=== PATIENT | male | born 1945 | race Asian ===

== ENCOUNTER 2017-10-13 17:58 | Inpatient (IN) | payer MEDICARE, OTHER ==
[2017-10-13 18:56] LABS: ADD MAN DIFF? NO
[2017-10-13 19:01] LABS: WHITE BLOOD COUNT 8.5 10^3/ul (4.8-10.8)
[2017-10-13 19:01] LABS: ABNORMAL IP MESSAGE 1; BASOPHILS % 0.4 % (0.0-2.0); HEMOGLOBIN 7.4 g/dl (14.0-18.0); LYMPHOCYTES # 0.6 10^3/ul (0.8-2.9); LYMPHOCYTES % 6.6 % (15.0-51.0); MEAN CORPUSCULAR HEMOGLOBIN 29.5 pg (29.0-33.0); MEAN CORPUSCULAR HGB CONC 33.6 g/dl (32.0-37.0); MEAN CORPUSCULAR VOLUME 87.6 fl (82.0-101.0); MEAN PLATELET VOLUME 13.6 fl (7.4-10.4); MONOCYTE # 1.3 10^3/ul (0.3-0.9); MONOCYTES % 14.8 % (0.0-11.0); NEUTROPHIL # 6.3 10^3/ul (1.6-7.5); NEUTROPHILS % 73.8 % (39.0-77.0); PLATELET COUNT 83 10^3/UL (140-415); POSITIVE DIFF @See below; RED BLOOD COUNT 2.51 10^6/ul (4.70-6.10); RED CELL DISTRIBUTION WIDTH 15.3 % (11.5-14.5)
[2017-10-13] MEDS: CEFTRIAXONE 1 GM/50 ML (PMX) 50 ML IVPB (19:05)
[2017-10-13] MEDS: SOD CHLORIDE 0.9% 500 ML IV (19:15)
[2017-10-13] MEDS: ACETAMINOPHEN 500 MG TAB PO (19:16)
[2017-10-13] MEDS: PANTOPRAZOLE IV 80 MG in SOD CHLORIDE 0.9% 100 ML IVPB (19:17)
[2017-10-13] MEDS: OCTREOTIDE 50 MCG in SOD CHLORIDE 0.9% 25 ML IVPB ×2 (19:17→19:40)
[2017-10-13 19:22] LABS: INR 1.54; PROTIME 18.8 Sec (11.9-14.9); PT RATIO 1.5
[2017-10-13 19:23] LABS: PARTIAL THROMBOPLASTIN TIME 38.1 Sec (25.0-35.0)
[2017-10-13 19:30] LABS: LACTIC ACID 2.8 mmol/L (0.5-2.0)
[2017-10-13 19:39] LABS: TROPONIN-I < 0.012 ng/ml (0.000-0.120)
[2017-10-13 19:40] LABS: ALANINE AMINOTRANSFERASE 40 IU/L (13-69); ALBUMIN 2.3 g/dl (3.3-4.9); ALBUMIN/GLOBULIN RATIO 0.54; ALKALINE PHOSPHATASE 219 IU/L (42-121); ANION GAP 16 (8-16); ASPARTATE AMINO TRANSFERASE 31 IU/L (15-46); BILIRUBIN,INDIRECT 0.6 mg/dl (0-1.1); BILIRUBIN,TOTAL 0.6 mg/dl (0.2-1.3); BLOOD UREA NITROGEN 42 mg/dl (7-20); CALCIUM 8.7 mg/dl (8.4-10.2); CARBON DIOXIDE 21 mmol/L (21-31); CHLORIDE 104 mmol/L (97-110); CREATININE 0.98 mg/dl (0.61-1.24); GLUCOSE 161 mg/dl (70-220); LIPASE 212 U/L (23-300); POTASSIUM 3.9 mmol/L (3.5-5.1); SODIUM 137 mmol/L (135-144); TOTAL PROTEIN 6.5 g/dl (6.1-8.1)
[2017-10-13] MEDS: PANTOPRAZOLE IV 80 MG in SOD CHLORIDE 0.9% 100 ML IV ×2 (20:32→21:30)
[2017-10-13] MEDS: OCTREOTIDE 500 MCG in SOD CHLORIDE 0.9% 49 ML IV (20:34)
[2017-10-13] MEDS: SOD CHLORIDE 0.9% 250 ML IV (20:55)
[2017-10-13] MEDS ORDERED: ONDANSETRON 4 MG INJ IV (21:30)
[2017-10-13] MEDS ORDERED: morphine 2 MG INJ IV (21:30)
[2017-10-13 22:09] LABS: HAAIG REFLEX REFLEX FILED
[2017-10-13 22:13] LABS: RETICULOCYTE RBC 2.27
[2017-10-13 22:13] LABS: RETICULOCYTE COUNT # 0.015 X10^6 (0.020-0.110); RETICULOCYTE COUNT % 0.7 % (0.5-1.5)
[2017-10-13 22:39] LABS: LACTATE DEHYDROGENASE 307 IU/L (313-618)
[2017-10-13 22:45] LABS: LACTIC ACID 2.3 mmol/L (0.5-2.0)
[2017-10-13 23:18] LABS: HEPATITIS B SURFACE ANTIGEN NEGATIVE (NEGATIVE)
[2017-10-13 23:36] LABS: HEPATITIS B CORE ANTIBODY NEGATIVE (NEGATIVE); HEPATITIS C VIRAL ANTIBODY NEGATIVE (NEGATIVE)
[2017-10-14] MEDS ORDERED: PENDING SANTYL ORDER FOR WOUND CARE XX
[2017-10-14] MEDS: OCTREOTIDE 1 MG in DEXTROSE 5% 95 ML IV ×2 (01:04→17:59)
[2017-10-14] MEDS: SOD CHLORIDE 0.9% 1,000 ML IV ×2 (01:04→21:16)
[2017-10-14] MEDS: PIPER-TAZO 3.375 GM IV (PMX) 100 ML IVPB ×5 (01:05→23:41)
[2017-10-14 01:59] LABS: LACTIC ACID 1.6 mmol/L (0.5-2.0)
[2017-10-14] MEDS ORDERED: VANCOMYCIN IV PER PHARMACY XX (02:00)
[2017-10-14 02:20] LABS: IMMEDIATE SPIN CROSSMATCH 1 6
[2017-10-14] MEDS: PANTOPRAZOLE IV 80 MG in SOD CHLORIDE 0.9% 100 ML IV ×3 (02:57→21:39)
[2017-10-14] MEDS: VANCOMYCIN 1.25 GM in SOD CHLORIDE 0.9% 250 ML IVPB (03:31)
[2017-10-14 06:07] LABS: WHITE BLOOD COUNT 2.2 10^3/ul (4.8-10.8)
[2017-10-14 06:07] LABS: ABNORMAL IP MESSAGE 1; HEMATOCRIT 15.8 % (42.0-52.0); MEAN CORPUSCULAR HEMOGLOBIN 30.9 pg (29.0-33.0); MEAN CORPUSCULAR HGB CONC 34.8 g/dl (32.0-37.0); MEAN CORPUSCULAR VOLUME 88.8 fl (82.0-101.0); MEAN PLATELET VOLUME 12.4 fl (7.4-10.4); PLATELET COUNT 35 10^3/UL (140-415); RED BLOOD COUNT 1.78 10^6/ul (4.70-6.10); RED CELL DISTRIBUTION WIDTH 14.5 % (11.5-14.5)
[2017-10-14 06:31] LABS: HEMOGLOBIN 5.5 g/dl (14.0-18.0)
[2017-10-14 06:40] LABS: PROTIME 18.4 Sec (11.9-14.9); PT RATIO 1.4
[2017-10-14 06:44] LABS: ANION GAP 12 (8-16); BLOOD UREA NITROGEN 46 mg/dl (7-20); CALCIUM 8.1 mg/dl (8.4-10.2); CARBON DIOXIDE 22 mmol/L (21-31); CHLORIDE 108 mmol/L (97-110); CREATININE 1.22 mg/dl (0.61-1.24); GLUCOSE 164 mg/dl (70-220); MAGNESIUM 1.7 mg/dl (1.7-2.5); PHOSPHORUS 5.5 mg/dl (2.5-4.9); POTASSIUM 3.4 mmol/L (3.5-5.1); SODIUM 139 mmol/L (135-144)
[2017-10-14 07:38] LABS: ADD MAN DIFF? NO
[2017-10-14 07:41] LABS: ABNORMAL IP MESSAGE 1; BASOPHILS % 0.4 % (0.0-2.0); HEMATOCRIT 18.6 % (42.0-52.0); LYMPHOCYTES # 0.4 10^3/ul (0.8-2.9); MEAN CORPUSCULAR HEMOGLOBIN 30.3 pg (29.0-33.0); MEAN CORPUSCULAR HGB CONC 33.9 g/dl (32.0-37.0); MEAN CORPUSCULAR VOLUME 89.4 fl (82.0-101.0); MEAN PLATELET VOLUME 13.6 fl (7.4-10.4); MONOCYTE # 0.5 10^3/ul (0.3-0.9); MONOCYTES % 18.9 % (0.0-11.0); NEUTROPHIL # 1.4 10^3/ul (1.6-7.5); NEUTROPHILS % 58.9 % (39.0-77.0); PLATELET COUNT 47 10^3/UL (140-415); POSITIVE DIFF @See below; RED BLOOD COUNT 2.08 10^6/ul (4.70-6.10); RED CELL DISTRIBUTION WIDTH 14.5 % (11.5-14.5)
[2017-10-14 07:41] LABS: WHITE BLOOD COUNT 2.4 10^3/ul (4.8-10.8)
[2017-10-14 07:43] LABS: HEMOGLOBIN 6.3 g/dl (14.0-18.0)
[2017-10-14 09:39] LABS: ADD UMIC YES; UR ASCORBIC ACID NEGATIVE (NEGATIVE); UR BACTERIA FEW /HPF (NONE SEEN); UR BILIRUBIN (Dip) NEGATIVE (NEGATIVE); UR BLOOD (Dip) 2+ mg/dL (NEGATIVE); UR BUDDING YEAST FEW /HPF (NONE SEEN); UR CLARITY CLOUDY (CLEAR); UR COLOR AMBER (YELLOW); UR GLUCOSE (Dip) NEGATIVE (NEGATIVE); UR KETONES (Dip) NEGATIVE (NEGATIVE); UR LEUKOCYTE ESTERASE (Dip) 2+ Leu/ul (NEGATIVE); UR NITRITE (Dip) NEGATIVE (NEGATIVE); UR NONSQUAMOUS EPITHELIAL CELL 5 /HPF (NONE SEEN); UR RBC 13 /HPF (0-5); UR SPECIFIC GRAVITY (Dip) 1.016 (1.003-1.030); UR TOTAL PROTEIN (Dip) 1+ mg/dl (NEGATIVE); UR UROBILINOGEN (Dip) NEGATIVE (NEGATIVE); UR WBC 159 /HPF (0-5)
[2017-10-14] MEDS: POTASSIUM CHLORIDE 50 ML IVPB ×2 (09:57→11:17)
[2017-10-14 10:43] LABS: BAND NEUTROPHILS #M 0.1 10^3/ul (0.0-0.6); BAND NEUTROPHILS % (M) 9 % (0-4); LYMPHOCYTES #M 0.6 10^3/ul (0.8-2.9); LYMPHOCYTES % (M) 29 % (15-51); METAMYELOCYTES %M 2 % (0-0); MONOCYTE #M 0.3 10^3/ul (0.3-0.9); MONOCYTES % (M) 14 % (0-11); MYELOCYTES % (M) 2 % (0-0); SEGMENTED NEUTROPHILS (M) % 44 % (39-77)
[2017-10-14 10:46] LABS: ANISOCYTOSIS 1+ (0-0); HYPOCHROMASIA OCCASIONAL (0-0)
[2017-10-14 10:47] LABS: ADD MAN DIFF? YES
[2017-10-14 10:49] LABS: PATH REVIEW Y; PLATELET ESTIMATE DECREASED
[2017-10-14 14:42] LABS: TYPE AND SCREEN 1
[2017-10-14] MEDS: BISACODYL (EC) 5 MG TAB PO (17:31)
[2017-10-14] MEDS: POLYETHYLENE GLYCOL 3350 119 GM POWDER PO (17:32)
[2017-10-14 17:56] LABS: ADD MAN DIFF? NO
[2017-10-14 17:59] LABS: ABNORMAL IP MESSAGE 1; BASOPHILS % 0.5 % (0.0-2.0); HEMATOCRIT 21.5 % (42.0-52.0); HEMOGLOBIN 7.5 g/dl (14.0-18.0); LYMPHOCYTES # 0.3 10^3/ul (0.8-2.9); LYMPHOCYTES % 14.4 % (15.0-51.0); MEAN CORPUSCULAR HEMOGLOBIN 30.7 pg (29.0-33.0); MEAN CORPUSCULAR HGB CONC 34.9 g/dl (32.0-37.0); MEAN CORPUSCULAR VOLUME 88.1 fl (82.0-101.0); MEAN PLATELET VOLUME 12.8 fl (7.4-10.4); MONOCYTE # 0.3 10^3/ul (0.3-0.9); MONOCYTES % 17.5 % (0.0-11.0); NEUTROPHIL # 1.2 10^3/ul (1.6-7.5); NEUTROPHILS % 60.9 % (39.0-77.0); PLATELET COUNT 66 10^3/UL (140-415); POSITIVE DIFF @See below; RED BLOOD COUNT 2.44 10^6/ul (4.70-6.10); RED CELL DISTRIBUTION WIDTH 14.2 % (11.5-14.5)
[2017-10-14 17:59] LABS: WHITE BLOOD COUNT 1.9 10^3/ul (4.8-10.8)
[2017-10-14 18:27] LABS: INR 1.49; PROTIME 18.3 Sec (11.9-14.9); PT RATIO 1.4
[2017-10-14] MEDS: MAGNESIUM CITRATE 300 ML BTL PO (19:31)
[2017-10-14] MEDS: COLLAGENASE 5 GM (UD JAR) TOP (21:17)
[2017-10-14 21:44] LABS: WHITE BLOOD COUNT 2.3 10^3/ul (4.8-10.8)
[2017-10-14 21:44] LABS: ABNORMAL IP MESSAGE 1; HEMATOCRIT 22.9 % (42.0-52.0); HEMOGLOBIN 7.9 g/dl (14.0-18.0); MEAN CORPUSCULAR HEMOGLOBIN 30.3 pg (29.0-33.0); MEAN CORPUSCULAR HGB CONC 34.5 g/dl (32.0-37.0); MEAN CORPUSCULAR VOLUME 87.7 fl (82.0-101.0); PLATELET COUNT 71 10^3/UL (140-415); POSITIVE DIFF @See below; RED BLOOD COUNT 2.61 10^6/ul (4.70-6.10); RED CELL DISTRIBUTION WIDTH 14.6 % (11.5-14.5)
[2017-10-14 21:51] LABS: ADD MAN DIFF? YES
[2017-10-14 22:04] LABS: LACTIC ACID 1.1 mmol/L (0.5-2.0)
[2017-10-14 22:52] LABS: BAND NEUTROPHILS #M 0.1 10^3/ul (0.0-0.6); BAND NEUTROPHILS % (M) 6 % (0-4); LYMPHOCYTES # 0.3 10^3/ul (0.8-2.9); LYMPHOCYTES #M 0.3 10^3/ul (0.8-2.9); LYMPHOCYTES % (M) 14 % (15-51); MONOCYTE # 0.4 10^3/ul (0.3-0.9); MONOCYTE #M 0.4 10^3/ul (0.3-0.9); MONOCYTES % (M) 18 % (0-11); SEG NEUT #M 1.4 10^3/ul (1.7-7.5); SEGMENTED NEUTROPHILS (M) % 62 % (39-77)
[2017-10-14 23:01] LABS: PLATELET ESTIMATE DECREASED
[2017-10-15] MEDS: PANTOPRAZOLE IV 80 MG in SOD CHLORIDE 0.9% 100 ML IV ×3 (01:50→14:18)
[2017-10-15] MEDS: VANCOMYCIN 1 GM 250 ML IVPB (03:15)
[2017-10-15 05:16] LABS: WHITE BLOOD COUNT 1.7 10^3/ul (4.8-10.8)
[2017-10-15 05:16] LABS: ABNORMAL IP MESSAGE 1; HEMATOCRIT 22.4 % (42.0-52.0); HEMOGLOBIN 7.5 g/dl (14.0-18.0); MEAN CORPUSCULAR HEMOGLOBIN 30.1 pg (29.0-33.0); MEAN CORPUSCULAR HGB CONC 33.5 g/dl (32.0-37.0); MEAN PLATELET VOLUME 12.1 fl (7.4-10.4); PLATELET COUNT 68 10^3/UL (140-415); RED BLOOD COUNT 2.49 10^6/ul (4.70-6.10); RED CELL DISTRIBUTION WIDTH 14.8 % (11.5-14.5)
[2017-10-15 05:28] LABS: INR 1.42; PROTIME 17.6 Sec (11.9-14.9); PT RATIO 1.4
[2017-10-15 05:48] LABS: ADD MAN DIFF? YES
[2017-10-15] MEDS: PIPER-TAZO 3.375 GM IV (PMX) 100 ML IVPB ×3 (05:58→18:41)
[2017-10-15] MEDS: SOD CHLORIDE 0.9% 1,000 ML IV (05:59)
[2017-10-15] MEDS: POLYETHYLENE GLYCOL 3350 119 GM POWDER PO (06:02)
[2017-10-15 07:25] LABS: ALANINE AMINOTRANSFERASE 39 IU/L (13-69); ALBUMIN 2.4 g/dl (3.3-4.9); ALBUMIN/GLOBULIN RATIO 0.63; ALKALINE PHOSPHATASE 150 IU/L (42-121); ANION GAP 12 (8-16); ASPARTATE AMINO TRANSFERASE 23 IU/L (15-46); BLOOD UREA NITROGEN 40 mg/dl (7-20); CALCIUM 8.4 mg/dl (8.4-10.2); CARBON DIOXIDE 24 mmol/L (21-31); CHLORIDE 115 mmol/L (97-110); CREATININE 1.22 mg/dl (0.61-1.24); GLUCOSE 137 mg/dl (70-220); POTASSIUM 3.6 mmol/L (3.5-5.1); SODIUM 147 mmol/L (135-144); TOTAL PROTEIN 6.2 g/dl (6.1-8.1)
[2017-10-15] MEDS: BISACODYL (EC) 5 MG TAB PO (08:02)
[2017-10-15] MEDS: POTASSIUM CHLORIDE 50 ML IVPB ×2 (08:11→10:54)
[2017-10-15 11:18] LABS: ABNORMAL IP MESSAGE 1; HEMATOCRIT 24.3 % (42.0-52.0); HEMOGLOBIN 8.2 g/dl (14.0-18.0); MEAN CORPUSCULAR HEMOGLOBIN 30.7 pg (29.0-33.0); MEAN CORPUSCULAR HGB CONC 33.7 g/dl (32.0-37.0); PLATELET COUNT 71 10^3/UL (140-415); POSITIVE DIFF @See below; RED BLOOD COUNT 2.67 10^6/ul (4.70-6.10); RED CELL DISTRIBUTION WIDTH 14.7 % (11.5-14.5)
[2017-10-15 11:18] LABS: WHITE BLOOD COUNT 1.5 10^3/ul (4.8-10.8)
[2017-10-15 11:20] LABS: ADD MAN DIFF? YES
[2017-10-15 13:33] LABS: ANISOCYTOSIS 1+ (0-0); BAND NEUTROPHILS #M 0.3 10^3/ul (0.0-0.6); BAND NEUTROPHILS % (M) 21 % (0-4); LYMPHOCYTES #M 0.2 10^3/ul (0.8-2.9); LYMPHOCYTES % (M) 15 % (15-51); METAMYELOCYTES %M 3 % (0-0); MONOCYTE #M 0.1 10^3/ul (0.3-0.9); MONOCYTES % (M) 12 % (0-11); MYELOCYTES % (M) 3 % (0-0); OVALOCYTES 1+ (0-0); PLATELET ESTIMATE DECREASED; POIKILOCYTOSIS 1+ (0-0); REACTIVE LYMPHOCYTES% (M) 2 % (0-0); SEG NEUT #M 0.6 10^3/ul (1.6-7.5); SEGMENTED NEUTROPHILS (M) % 43 % (39-77); TEAR DROP CELLS 1+ (0-0)
[2017-10-15 13:44] LABS: BAND NEUTROPHILS #M 0.3 10^3/ul (0.0-0.6); BAND NEUTROPHILS % (M) 20 % (0-4); LYMPHOCYTES # 0.3 10^3/ul (0.8-2.9); LYMPHOCYTES #M 0.2 10^3/ul (0.8-2.9); LYMPHOCYTES % (M) 16 % (15-51); METAMYELOCYTES %M 2 % (0-0); MONOCYTE # 0.2 10^3/ul (0.3-0.9); MONOCYTE #M 0.2 10^3/ul (0.3-0.9); MONOCYTES % (M) 13 % (0-11); MYELOCYTES % (M) 3 % (0-0); OVALOCYTES FEW (0-0); REACTIVE LYMPHOCYTES% (M) 2 % (0-0); SEG NEUT #M 0.8 10^3/ul (1.7-7.5); SEGMENTED NEUTROPHILS (M) % 44 % (39-77); TEAR DROP CELLS FEW (0-0)
[2017-10-15] MEDS: OCTREOTIDE 1 MG in DEXTROSE 5% 95 ML IV (14:17)
[2017-10-15 14:52] LABS: ADD MAN DIFF? NO
[2017-10-15 14:57] LABS: ABNORMAL IP MESSAGE 1; HEMATOCRIT 22.3 % (42.0-52.0); HEMOGLOBIN 7.4 g/dl (14.0-18.0); MEAN CORPUSCULAR HEMOGLOBIN 30.1 pg (29.0-33.0); MEAN CORPUSCULAR HGB CONC 33.2 g/dl (32.0-37.0); MEAN CORPUSCULAR VOLUME 90.7 fl (82.0-101.0); MEAN PLATELET VOLUME 12.5 fl (7.4-10.4); PLATELET COUNT 71 10^3/UL (140-415); POSITIVE DIFF @See below; RED BLOOD COUNT 2.46 10^6/ul (4.70-6.10); RED CELL DISTRIBUTION WIDTH 15.2 % (11.5-14.5)
[2017-10-15 14:57] LABS: WHITE BLOOD COUNT 1.5 10^3/ul (4.8-10.8)
[2017-10-15 15:41] LABS: HAPTOGLOBIN 74 mg/dL (43-212)
[2017-10-15 15:54] LABS: IMMEDIATE SPIN CROSSMATCH 1
[2017-10-15 16:41] LABS: ANISOCYTOSIS 1+ (0-0); BAND NEUTROPHILS #M 0.1 10^3/ul (0.0-0.6); BAND NEUTROPHILS % (M) 9 % (0-4); GIANT THROMBO% (M) 1 % (0-0); LYMPHOCYTES #M 0.2 10^3/ul (0.8-2.9); LYMPHOCYTES % (M) 18 % (15-51); METAMYELOCYTES %M 1 % (0-0); MONOCYTE #M 0.1 10^3/ul (0.3-0.9); MONOCYTES % (M) 7 % (0-11); PLATELET MORPHOLOGY COMMENT @See below; POLYCHROMASIA 1+ (0-0); SEGMENTED NEUTROPHILS (M) % 66 % (39-77); SMUDGE%M 1 % (0-0)
[2017-10-15] MEDS ORDERED: ONDANSETRON 4 MG INJ IV (18:00)
[2017-10-15] MEDS ORDERED: hydrALAzine 20 MG INJ IV (18:00)
[2017-10-15] MEDS ORDERED: FENTAnyl 50 MCG/ML VIAL IV ×3 (18:00)
[2017-10-15] MEDS ORDERED: OXYCODONE/ACETAMINOPHEN (5/325) TAB PO ×2 (18:00)
[2017-10-15] MEDS ORDERED: METOCLOPRAMIDE 10 MG INJ IV (18:00)
[2017-10-15] MEDS ORDERED: LABETALOL HCL 20MG INJ IV (18:00)
[2017-10-15] MEDS ORDERED: MIDAZOLAM 1 MG/ML 2 ML INJ IV (18:00)
[2017-10-15] MEDS ORDERED: DIPHENHYDRAMINE 50 MG INJ IV (18:00)
[2017-10-15] MEDS ORDERED: MEPERIDINE 25 MG INJ IV (18:00)
[2017-10-15] MEDS ORDERED: EPHEDrine SULFATE 50 MG/5 ML SYG IV (18:00)
[2017-10-15] MEDS: PROPOFOL 20 ML (18:23)
[2017-10-15 21:05] LABS: ABNORMAL IP MESSAGE 1; ADD MAN DIFF? YES; HEMATOCRIT 24.4 % (42.0-52.0); HEMOGLOBIN 8.2 g/dl (14.0-18.0); MEAN CORPUSCULAR HEMOGLOBIN 30.3 pg (29.0-33.0); MEAN CORPUSCULAR HGB CONC 33.6 g/dl (32.0-37.0); MEAN PLATELET VOLUME 12.7 fl (7.4-10.4); PLATELET COUNT 75 10^3/UL (140-415); POSITIVE DIFF @See below; RED BLOOD COUNT 2.71 10^6/ul (4.70-6.10); RED CELL DISTRIBUTION WIDTH 15.6 % (11.5-14.5)
[2017-10-15 21:05] LABS: WHITE BLOOD COUNT 1.4 10^3/ul (4.8-10.8)
[2017-10-15] MEDS: COLLAGENASE 5 GM (UD JAR) TOP (21:35)
[2017-10-15 22:14] LABS: BAND NEUTROPHILS % (M) 6 % (0-4); BASOPHILS % (M) 4 % (0-2); LYMPHOCYTES #M 0.5 10^3/ul (0.8-2.9); LYMPHOCYTES % (M) 40 % (15-51); METAMYELOCYTES %M 2 % (0-0); MONOCYTES % (M) 2 % (0-11); MYELOCYTES % (M) 2 % (0-0); PLATELET MORPHOLOGY COMMENT @See below; POIKILOCYTOSIS 1+ (0-0); SEG NEUT #M 0.6 10^3/ul (1.6-7.5); SEGMENTED NEUTROPHILS (M) % 45 % (39-77); SMUDGE%M 3 % (0-0)
[2017-10-16 00:59] LABS: WHITE BLOOD COUNT 1.6 10^3/ul (4.8-10.8)
[2017-10-16 00:59] LABS: ABNORMAL IP MESSAGE 1; HEMATOCRIT 26.3 % (42.0-52.0); HEMOGLOBIN 8.8 g/dl (14.0-18.0); MEAN CORPUSCULAR HEMOGLOBIN 29.9 pg (29.0-33.0); MEAN CORPUSCULAR HGB CONC 33.5 g/dl (32.0-37.0); MEAN CORPUSCULAR VOLUME 89.5 fl (82.0-101.0); MEAN PLATELET VOLUME 11.8 fl (7.4-10.4); PLATELET COUNT 81 10^3/UL (140-415); POSITIVE DIFF @See below; RED BLOOD COUNT 2.94 10^6/ul (4.70-6.10); RED CELL DISTRIBUTION WIDTH 15.8 % (11.5-14.5)
[2017-10-16 01:03] LABS: ADD MAN DIFF? YES
[2017-10-16] MEDS: PIPER-TAZO 3.375 GM IV (PMX) 100 ML IVPB ×5 (01:47→23:55)
[2017-10-16 02:00] LABS: BAND NEUTROPHILS % (M) 6 % (0-4); LYMPHOCYTES #M 0.2 10^3/ul (0.8-2.9); LYMPHOCYTES % (M) 13 % (15-51); MONOCYTE #M 0.2 10^3/ul (0.3-0.9); MONOCYTES % (M) 13 % (0-11); PLATELET ESTIMATE DECREASED; REACTIVE LYMPHOCYTES% (M) 3 % (0-0); SEGMENTED NEUTROPHILS (M) % 65 % (39-77)
[2017-10-16] MEDS: VANCOMYCIN 1 GM 250 ML IVPB (04:47)
[2017-10-16 06:23] LABS: ADD MAN DIFF? NO
[2017-10-16 06:28] LABS: ABNORMAL IP MESSAGE 1; HEMATOCRIT 23.9 % (42.0-52.0); LYMPHOCYTES # 0.2 10^3/ul (0.8-2.9); LYMPHOCYTES % 14.9 % (15.0-51.0); MEAN CORPUSCULAR HEMOGLOBIN 29.6 pg (29.0-33.0); MEAN CORPUSCULAR HGB CONC 33.5 g/dl (32.0-37.0); MEAN CORPUSCULAR VOLUME 88.5 fl (82.0-101.0); MEAN PLATELET VOLUME 12.6 fl (7.4-10.4); MONOCYTE # 0.3 10^3/ul (0.3-0.9); MONOCYTES % 15.5 % (0.0-11.0); NEUTROPHILS % 64.6 % (39.0-77.0); PLATELET COUNT 85 10^3/UL (140-415); POSITIVE DIFF @See below; RED CELL DISTRIBUTION WIDTH 15.9 % (11.5-14.5)
[2017-10-16 06:28] LABS: WHITE BLOOD COUNT 1.6 10^3/ul (4.8-10.8)
[2017-10-16 07:41] LABS: ANION GAP 10 (8-16); BLOOD UREA NITROGEN 35 mg/dl (7-20); CALCIUM 8.3 mg/dl (8.4-10.2); CARBON DIOXIDE 23 mmol/L (21-31); CHLORIDE 118 mmol/L (97-110); CREATININE 1.12 mg/dl (0.61-1.24); GLUCOSE 145 mg/dl (70-220); POTASSIUM 3.7 mmol/L (3.5-5.1); SODIUM 147 mmol/L (135-144)
[2017-10-16] MEDS: BARIUM SULF 2% 450 ML BTL (BERRY SMOOTHIE) PO (08:30)
[2017-10-16] MEDS: IOHEXOL 14.3 MG(I)/ML (ADULT) BTL PO (10:23)
[2017-10-16] MEDS: PANTOPRAZOLE (EC) 40 MG TAB PO ×2 (12:17→17:45)
[2017-10-16] MEDS: IOHEXOL 300MG/ML 150 ML BTL (13:09)
[2017-10-16] MEDS: SOD CHLORIDE 0.9% 100 ML (13:10)
[2017-10-16 14:01] LABS: WHITE BLOOD COUNT 1.4 10^3/ul (4.8-10.8)
[2017-10-16 14:01] LABS: ABNORMAL IP MESSAGE 1; HEMATOCRIT 23.6 % (42.0-52.0); HEMOGLOBIN 7.8 g/dl (14.0-18.0); MEAN CORPUSCULAR HEMOGLOBIN 29.7 pg (29.0-33.0); MEAN CORPUSCULAR HGB CONC 33.1 g/dl (32.0-37.0); MEAN CORPUSCULAR VOLUME 89.7 fl (82.0-101.0); MEAN PLATELET VOLUME 12.1 fl (7.4-10.4); PLATELET COUNT 91 10^3/UL (140-415); POSITIVE DIFF @See below; RED BLOOD COUNT 2.63 10^6/ul (4.70-6.10); RED CELL DISTRIBUTION WIDTH 15.9 % (11.5-14.5)
[2017-10-16 14:10] LABS: ADD MAN DIFF? YES
[2017-10-16 15:46] LABS: ANISOCYTOSIS 1+ (0-0); BAND NEUTROPHILS #M 0.2 10^3/ul (0.0-0.6); BAND NEUTROPHILS % (M) 20 % (0-4); LYMPHOCYTES #M 0.2 10^3/ul (0.8-2.9); LYMPHOCYTES % (M) 21 % (15-51); METAMYELOCYTES %M 1 % (0-0); MONOCYTE #M 0.1 10^3/ul (0.3-0.9); MONOCYTES % (M) 12 % (0-11); PLATELET ESTIMATE DECREASED; POIKILOCYTOSIS 1+ (0-0); POLYCHROMASIA 1+ (0-0); SEG NEUT #M 0.6 10^3/ul (1.6-7.5); SEGMENTED NEUTROPHILS (M) % 46 % (39-77)
[2017-10-16 18:58] LABS: ADD MAN DIFF? NO
[2017-10-16 19:00] LABS: WHITE BLOOD COUNT 1.8 10^3/ul (4.8-10.8)
[2017-10-16 19:00] LABS: ABNORMAL IP MESSAGE 1; HEMATOCRIT 24.5 % (42.0-52.0); HEMOGLOBIN 8.1 g/dl (14.0-18.0); LYMPHOCYTES # 0.3 10^3/ul (0.8-2.9); LYMPHOCYTES % 14.3 % (15.0-51.0); MEAN CORPUSCULAR HEMOGLOBIN 29.3 pg (29.0-33.0); MEAN CORPUSCULAR HGB CONC 33.1 g/dl (32.0-37.0); MEAN CORPUSCULAR VOLUME 88.8 fl (82.0-101.0); MEAN PLATELET VOLUME 12.2 fl (7.4-10.4); MONOCYTE # 0.3 10^3/ul (0.3-0.9); MONOCYTES % 18.3 % (0.0-11.0); NEUTROPHIL # 1.1 10^3/ul (1.6-7.5); PLATELET COUNT 97 10^3/UL (140-415); POSITIVE DIFF @See below; RED BLOOD COUNT 2.76 10^6/ul (4.70-6.10); RED CELL DISTRIBUTION WIDTH 15.9 % (11.5-14.5)
[2017-10-16] MEDS: COLLAGENASE 5 GM (UD JAR) TOP (20:34)
[2017-10-16] MEDS: SOD CHLORIDE 0.9% 1,000 ML IV (20:41)
[2017-10-17 00:49] LABS: WHITE BLOOD COUNT 1.4 10^3/ul (4.8-10.8)
[2017-10-17 00:49] LABS: ABNORMAL IP MESSAGE 1; HEMATOCRIT 22.7 % (42.0-52.0); HEMOGLOBIN 7.6 g/dl (14.0-18.0); MEAN CORPUSCULAR HEMOGLOBIN 29.9 pg (29.0-33.0); MEAN CORPUSCULAR HGB CONC 33.5 g/dl (32.0-37.0); MEAN CORPUSCULAR VOLUME 89.4 fl (82.0-101.0); MEAN PLATELET VOLUME 12.4 fl (7.4-10.4); PLATELET COUNT 85 10^3/UL (140-415); POSITIVE DIFF @See below; RED BLOOD COUNT 2.54 10^6/ul (4.70-6.10); RED CELL DISTRIBUTION WIDTH 15.9 % (11.5-14.5)
[2017-10-17 01:05] LABS: ADD MAN DIFF? YES
[2017-10-17 03:14] LABS: BAND NEUTROPHILS #M 0.1 10^3/ul (0.0-0.6); BAND NEUTROPHILS % (M) 10 % (0-4); LYMPHOCYTES #M 0.2 10^3/ul (0.8-2.9); LYMPHOCYTES % (M) 16 % (15-51); MONOCYTE #M 0.2 10^3/ul (0.3-0.9); MONOCYTES % (M) 19 % (0-11); MYELOCYTES % (M) 2 % (0-0); PLATELET ESTIMATE DECREASED; POIKILOCYTOSIS 1+ (0-0); POLYCHROMASIA 2+ (0-0); PROMYELOCYTES #M 0.1 10^3/ul (0-0); PROMYELOCYTES % (M) 8 % (0-0); SEG NEUT #M 0.6 10^3/ul (1.6-7.5); SEGMENTED NEUTROPHILS (M) % 45 % (39-77); SMUDGE%M 5 % (0-0)
[2017-10-17] MEDS: PANTOPRAZOLE (EC) 40 MG TAB PO ×2 (05:06→18:05)
[2017-10-17] MEDS: PIPER-TAZO 3.375 GM IV (PMX) 100 ML IVPB ×4 (05:11→23:35)
[2017-10-17] MEDS ORDERED: PANTOPRAZOLE (EC) 40 MG TAB PO (06:00)
[2017-10-17 06:53] LABS: WHITE BLOOD COUNT 1.6 10^3/ul (4.8-10.8)
[2017-10-17 06:53] LABS: ABNORMAL IP MESSAGE 1; HEMATOCRIT 25.5 % (42.0-52.0); HEMOGLOBIN 8.4 g/dl (14.0-18.0); MEAN CORPUSCULAR HEMOGLOBIN 30.1 pg (29.0-33.0); MEAN CORPUSCULAR HGB CONC 32.9 g/dl (32.0-37.0); MEAN CORPUSCULAR VOLUME 91.4 fl (82.0-101.0); MEAN PLATELET VOLUME 12.5 fl (7.4-10.4); PLATELET COUNT 101 10^3/UL (140-415); POSITIVE DIFF @See below; RED BLOOD COUNT 2.79 10^6/ul (4.70-6.10); RED CELL DISTRIBUTION WIDTH 15.7 % (11.5-14.5)
[2017-10-17 07:03] LABS: ADD MAN DIFF? YES
[2017-10-17 07:13] LABS: INR 1.48; PROTIME 18.2 Sec (11.9-14.9); PT RATIO 1.4
[2017-10-17 07:38] LABS: ALBUMIN 2.4 g/dl (3.3-4.9); ANION GAP 13 (8-16); BLOOD UREA NITROGEN 27 mg/dl (7-20); CALCIUM 8.3 mg/dl (8.4-10.2); CARBON DIOXIDE 22 mmol/L (21-31); CHLORIDE 115 mmol/L (97-110); CREATININE 1.18 mg/dl (0.61-1.24); GLUCOSE 131 mg/dl (70-220); PHOSPHORUS 4.9 mg/dl (2.5-4.9); POTASSIUM 3.4 mmol/L (3.5-5.1); SODIUM 147 mmol/L (135-144)
[2017-10-17 07:43] LABS: C-REACTIVE PROTEIN 5.3 mg/dl (0.0-0.9)
[2017-10-17 08:30] LABS: ERYTHROCYTE SEDIMENTATION RATE 55 mm/Hr (0-20)
[2017-10-17 09:10] LABS: BAND NEUTROPHILS #M 0.4 10^3/ul (0.0-0.6); BAND NEUTROPHILS % (M) 29 % (0-4); LYMPHOCYTES #M 0.1 10^3/ul (0.8-2.9); LYMPHOCYTES % (M) 12 % (15-51); METAMYELOCYTES %M 2 % (0-0); MONOCYTE #M 0.2 10^3/ul (0.3-0.9); MONOCYTES % (M) 15 % (0-11); MYELOCYTES % (M) 1 % (0-0); PLATELET ESTIMATE DECREASED; REACTIVE LYMPHOCYTES% (M) 1 % (0-0); SEG NEUT #M 0.6 10^3/ul (1.6-7.5); SEGMENTED NEUTROPHILS (M) % 40 % (39-77); SMUDGE%M 77 % (0-0); SPHEROCYTES 1+ (0-0)
[2017-10-17] MEDS: POTASSIUM CHLORIDE (SR) 20 MEQ TAB PO (09:19)
[2017-10-17 17:04] LABS: ABNORMAL IP MESSAGE 1; HEMATOCRIT 25.4 % (42.0-52.0); HEMOGLOBIN 8.4 g/dl (14.0-18.0); MEAN CORPUSCULAR HEMOGLOBIN 29.7 pg (29.0-33.0); MEAN CORPUSCULAR HGB CONC 33.1 g/dl (32.0-37.0); MEAN CORPUSCULAR VOLUME 89.8 fl (82.0-101.0); MEAN PLATELET VOLUME 11.8 fl (7.4-10.4); PLATELET COUNT 112 10^3/UL (140-415); POSITIVE DIFF @See below; RED BLOOD COUNT 2.83 10^6/ul (4.70-6.10); RED CELL DISTRIBUTION WIDTH 15.8 % (11.5-14.5)
[2017-10-17 17:04] LABS: WHITE BLOOD COUNT 2.5 10^3/ul (4.8-10.8)
[2017-10-17 17:06] LABS: ADD MAN DIFF? YES
[2017-10-17 17:50] LABS: ANISOCYTOSIS 1+ (0-0); BAND NEUTROPHILS #M 0.5 10^3/ul (0.0-0.6); BAND NEUTROPHILS % (M) 20 % (0-4); LYMPHOCYTES #M 0.5 10^3/ul (0.8-2.9); LYMPHOCYTES % (M) 21 % (15-51); METAMYELOCYTES %M 1 % (0-0); MONOCYTE #M 0.2 10^3/ul (0.3-0.9); MONOCYTES % (M) 10 % (0-11); PLATELET ESTIMATE NORMAL; POLYCHROMASIA 1+ (0-0); SEG NEUT #M 1.2 10^3/ul (1.6-7.5); SEGMENTED NEUTROPHILS (M) % 48 % (39-77); SMUDGE%M 5 % (0-0)
[2017-10-17] MEDS: PROPRANOLOL 10 MG TAB PO (20:39)
[2017-10-17] MEDS: COLLAGENASE 5 GM (UD JAR) TOP (20:39)
[2017-10-17] MEDS: SOD CHLORIDE 0.9% 1,000 ML IV (21:16)
[2017-10-17 22:34] LABS: ADD MAN DIFF? NO
[2017-10-17 22:36] LABS: BASOPHILS % 0.4 % (0.0-2.0); HEMOGLOBIN 8.2 g/dl (14.0-18.0); LYMPHOCYTES # 0.3 10^3/ul (0.8-2.9); LYMPHOCYTES % 12.3 % (15.0-51.0); MEAN CORPUSCULAR HEMOGLOBIN 29.8 pg (29.0-33.0); MEAN CORPUSCULAR HGB CONC 32.8 g/dl (32.0-37.0); MEAN CORPUSCULAR VOLUME 90.9 fl (82.0-101.0); MEAN PLATELET VOLUME 12.3 fl (7.4-10.4); MONOCYTE # 0.4 10^3/ul (0.3-0.9); MONOCYTES % 16.9 % (0.0-11.0); NEUTROPHIL # 1.6 10^3/ul (1.6-7.5); NEUTROPHILS % 67.9 % (39.0-77.0); PLATELET COUNT 111 10^3/UL (140-415); RED BLOOD COUNT 2.75 10^6/ul (4.70-6.10); RED CELL DISTRIBUTION WIDTH 15.8 % (11.5-14.5)
[2017-10-17 22:40] LABS: WHITE BLOOD COUNT 2.4 10^3/ul (4.8-10.8)
[2017-10-18] MEDS: PIPER-TAZO 3.375 GM IV (PMX) 100 ML IVPB ×3 (06:12→18:47)
[2017-10-18] MEDS: PANTOPRAZOLE (EC) 40 MG TAB PO ×2 (06:12→18:47)
[2017-10-18] MEDS: SOD CHLORIDE 0.9% 1,000 ML IV (06:18)
[2017-10-18 06:27] LABS: ADD MAN DIFF? NO
[2017-10-18 06:32] LABS: ABNORMAL IP MESSAGE 1; HEMATOCRIT 22.7 % (42.0-52.0); HEMOGLOBIN 7.6 g/dl (14.0-18.0); LYMPHOCYTES # 0.3 10^3/ul (0.8-2.9); LYMPHOCYTES % 13.2 % (15.0-51.0); MEAN CORPUSCULAR HEMOGLOBIN 30.2 pg (29.0-33.0); MEAN CORPUSCULAR HGB CONC 33.5 g/dl (32.0-37.0); MEAN CORPUSCULAR VOLUME 90.1 fl (82.0-101.0); MEAN PLATELET VOLUME 12.3 fl (7.4-10.4); MONOCYTE # 0.3 10^3/ul (0.3-0.9); MONOCYTES % 16.2 % (0.0-11.0); NEUTROPHIL # 1.4 10^3/ul (1.6-7.5); NEUTROPHILS % 67.2 % (39.0-77.0); PLATELET COUNT 101 10^3/UL (140-415); POSITIVE DIFF @See below; RED BLOOD COUNT 2.52 10^6/ul (4.70-6.10); RED CELL DISTRIBUTION WIDTH 15.7 % (11.5-14.5)
[2017-10-18 06:50] LABS: ALBUMIN 2.4 g/dl (3.3-4.9); ANION GAP 13 (8-16); BLOOD UREA NITROGEN 24 mg/dl (7-20); CALCIUM 8.4 mg/dl (8.4-10.2); CARBON DIOXIDE 21 mmol/L (21-31); CHLORIDE 117 mmol/L (97-110); CREATININE 1.05 mg/dl (0.61-1.24); GLUCOSE 144 mg/dl (70-220); MAGNESIUM 1.9 mg/dl (1.7-2.5); PHOSPHORUS 4.1 mg/dl (2.5-4.9); POTASSIUM 3.8 mmol/L (3.5-5.1); SODIUM 147 mmol/L (135-144)
[2017-10-18] MEDS: PROPRANOLOL 10 MG TAB PO ×2 (08:33→21:08)
[2017-10-18 12:14] LABS: ADD MAN DIFF? NO
[2017-10-18 12:27] LABS: ABNORMAL IP MESSAGE 1; HEMATOCRIT 24.9 % (42.0-52.0); HEMOGLOBIN 8.2 g/dl (14.0-18.0); LYMPHOCYTES # 0.3 10^3/ul (0.8-2.9); LYMPHOCYTES % 14.9 % (15.0-51.0); MEAN CORPUSCULAR HEMOGLOBIN 29.8 pg (29.0-33.0); MEAN CORPUSCULAR HGB CONC 32.9 g/dl (32.0-37.0); MEAN CORPUSCULAR VOLUME 90.5 fl (82.0-101.0); MEAN PLATELET VOLUME 12.2 fl (7.4-10.4); MONOCYTE # 0.3 10^3/ul (0.3-0.9); MONOCYTES % 16.9 % (0.0-11.0); NEUTROPHIL # 1.3 10^3/ul (1.6-7.5); NEUTROPHILS % 63.7 % (39.0-77.0); PLATELET COUNT 116 10^3/UL (140-415); POSITIVE DIFF @See below; RED BLOOD COUNT 2.75 10^6/ul (4.70-6.10); RED CELL DISTRIBUTION WIDTH 15.6 % (11.5-14.5)
[2017-10-18] MEDS: PHYTONADIONE 10 MG/ML INJ SC (14:06)
[2017-10-18 19:53] LABS: HEMATOCRIT 24.5 % (42.0-52.0)
[2017-10-18] MEDS: COLLAGENASE 5 GM (UD JAR) TOP (21:07)
[2017-10-18] MEDS: ALBUTEROL/IPRATROPIUM (NEB) 3 ML AMP HHN (21:30)
[2017-10-19] MEDS: PIPER-TAZO 3.375 GM IV (PMX) 100 ML IVPB ×4 (00:59→17:34)
[2017-10-19 06:22] LABS: ADD MAN DIFF? NO
[2017-10-19 06:24] LABS: WHITE BLOOD COUNT 1.8 10^3/ul (4.8-10.8)
[2017-10-19 06:24] LABS: ABNORMAL IP MESSAGE 1; HEMATOCRIT 23.5 % (42.0-52.0); HEMOGLOBIN 7.8 g/dl (14.0-18.0); LYMPHOCYTES # 0.3 10^3/ul (0.8-2.9); LYMPHOCYTES % 16.4 % (15.0-51.0); MEAN CORPUSCULAR HEMOGLOBIN 30.4 pg (29.0-33.0); MEAN CORPUSCULAR HGB CONC 33.2 g/dl (32.0-37.0); MEAN CORPUSCULAR VOLUME 91.4 fl (82.0-101.0); MONOCYTE # 0.3 10^3/ul (0.3-0.9); MONOCYTES % 16.9 % (0.0-11.0); NEUTROPHIL # 1.2 10^3/ul (1.6-7.5); NEUTROPHILS % 64.5 % (39.0-77.0); POSITIVE DIFF @See below; RED BLOOD COUNT 2.57 10^6/ul (4.70-6.10); RED CELL DISTRIBUTION WIDTH 15.8 % (11.5-14.5)
[2017-10-19] MEDS: PANTOPRAZOLE (EC) 40 MG TAB PO ×2 (06:25→17:34)
[2017-10-19 06:50] LABS: ALBUMIN 2.3 g/dl (3.3-4.9); ANION GAP 11 (8-16); BLOOD UREA NITROGEN 24 mg/dl (7-20); CALCIUM 8.5 mg/dl (8.4-10.2); CARBON DIOXIDE 22 mmol/L (21-31); CHLORIDE 119 mmol/L (97-110); GLUCOSE 154 mg/dl (70-220); MAGNESIUM 1.9 mg/dl (1.7-2.5); PHOSPHORUS 3.8 mg/dl (2.5-4.9); POTASSIUM 3.7 mmol/L (3.5-5.1); SODIUM 148 mmol/L (135-144)
[2017-10-19 08:21] LABS: MEAN PLATELET VOLUME 12.3 fl (7.4-10.4); PLATELET COUNT 82 10^3/UL (140-415)
[2017-10-19] MEDS: PROPRANOLOL 10 MG TAB PO ×2 (08:28→21:44)
[2017-10-19] MEDS: MESALAMINE (EC) 400 MG CAP PO ×3 (10:11→21:44)
[2017-10-19 12:28] LABS: HEMOGLOBIN 7.6 g/dl (14.0-18.0)
[2017-10-19] MEDS: ALBUTEROL/IPRATROPIUM (NEB) 3 ML AMP HHN (17:42)
[2017-10-19 18:37] LABS: HEMOGLOBIN 8.2 g/dl (14.0-18.0)
[2017-10-19] MEDS: SOD CHLORIDE 0.9% 1,000 ML IV (21:16)
[2017-10-19] MEDS: COLLAGENASE 5 GM (UD JAR) TOP (21:44)
[2017-10-20] MEDS: PIPER-TAZO 3.375 GM IV (PMX) 100 ML IVPB ×4 (00:07→17:28)
[2017-10-20] MEDS: PANTOPRAZOLE (EC) 40 MG TAB PO ×2 (05:16→17:28)
[2017-10-20] MEDS: PROPRANOLOL 10 MG TAB PO ×2 (08:51→23:41)
[2017-10-20] MEDS: MESALAMINE (EC) 400 MG CAP PO ×3 (08:51→23:40)
[2017-10-20] MEDS ORDERED: FUROSEMIDE 40 MG INJ IV (11:30)
[2017-10-20] MEDS ORDERED: SPIRONOLACTONE 25 MG TAB PO (11:30)
[2017-10-20] MEDS ORDERED: FUROSEMIDE 20 MG TAB PO (12:00)
[2017-10-20 13:15] LABS: HEMOGLOBIN 8.9 g/dl (14.0-18.0)
[2017-10-20 13:35] LABS: INR 1.36; PT RATIO 1.3
[2017-10-20] MEDS: ALBUTEROL/IPRATROPIUM (NEB) 3 ML AMP HHN (14:04)
[2017-10-20] MEDS: DEXTROSE 5%-0.45% NACL 1,000 ML IV (15:00)
[2017-10-20] MEDS: LIDOCAINE 1% (MDV) 10 ML INJ (16:02)
[2017-10-20 16:56] LABS: FLD MN% 93.4 %; FLD PMN% 6.6 %; FLD RBC 0 /uL; FLD WBC 15 /cmm
[2017-10-20 17:16] LABS: RETICULOCYTE RBC 2.97
[2017-10-20 17:16] LABS: RETICULOCYTE COUNT # 0.012 X10^6 (0.020-0.110); RETICULOCYTE COUNT % 0.4 % (0.5-1.5)
[2017-10-20 17:26] LABS: IRON 118 ug/dl (35-150)
[2017-10-20 17:35] LABS: FLD TYPE ASCITES
[2017-10-20 17:35] LABS: FLD CLARITY CLEAR; FLD COLOR YELLOW
[2017-10-20 17:36] LABS: % IRON SATURATION 76 % SAT (22-52); TOTAL IRON BINDING CAPACITY 155 ug/dl (241-421)
[2017-10-20 17:40] LABS: FLUID LD 130 U/L
[2017-10-20 17:41] LABS: FLUID TYPE ASCITIES FLUID
[2017-10-20 18:11] LABS: HEMOGLOBIN 7.5 g/dl (14.0-18.0)
[2017-10-20 19:31] LABS: FOLATE 15.5 ng/ml (2.8-20.0)
[2017-10-20] MEDS: COLLAGENASE 5 GM (UD JAR) TOP (23:41)
[2017-10-21] MEDS: PIPER-TAZO 3.375 GM IV (PMX) 100 ML IVPB ×3 (00:22→13:42)
[2017-10-21] MEDS: PANTOPRAZOLE (EC) 40 MG TAB PO ×2 (06:32→18:38)
[2017-10-21] MEDS ORDERED: SPIRONOLACTONE 25 MG TAB PO (09:00)
[2017-10-21] MEDS: MESALAMINE (EC) 400 MG CAP PO ×3 (09:19→21:33)
[2017-10-21] MEDS: FOLIC ACID 1 MG TAB PO (09:20)
[2017-10-21] MEDS: PROPRANOLOL 10 MG TAB PO ×2 (09:20→21:00)
[2017-10-21 10:17] LABS: ADD MAN DIFF? NO
[2017-10-21 10:23] LABS: ABNORMAL IP MESSAGE 1; BASOPHILS % 0.4 % (0.0-2.0); HEMATOCRIT 28.2 % (42.0-52.0); HEMOGLOBIN 9.4 g/dl (14.0-18.0); LYMPHOCYTES # 0.3 10^3/ul (0.8-2.9); LYMPHOCYTES % 11.7 % (15.0-51.0); MEAN CORPUSCULAR HEMOGLOBIN 29.7 pg (29.0-33.0); MEAN CORPUSCULAR HGB CONC 33.3 g/dl (32.0-37.0); MEAN CORPUSCULAR VOLUME 89.2 fl (82.0-101.0); MONOCYTE # 0.6 10^3/ul (0.3-0.9); MONOCYTES % 21.9 % (0.0-11.0); NEUTROPHIL # 1.7 10^3/ul (1.6-7.5); NEUTROPHILS % 64.1 % (39.0-77.0); PLATELET COUNT 58 10^3/UL (140-415); POSITIVE DIFF @See below; RED BLOOD COUNT 3.16 10^6/ul (4.70-6.10); RED CELL DISTRIBUTION WIDTH 15.5 % (11.5-14.5)
[2017-10-21 10:23] LABS: WHITE BLOOD COUNT 2.7 10^3/ul (4.8-10.8)
[2017-10-21 10:48] LABS: ANION GAP 10 (8-16); BLOOD UREA NITROGEN 27 mg/dl (7-20); CALCIUM 8.5 mg/dl (8.4-10.2); CARBON DIOXIDE 24 mmol/L (21-31); CHLORIDE 120 mmol/L (97-110); CREATININE 1.04 mg/dl (0.61-1.24); GLUCOSE 173 mg/dl (70-220); PHOSPHORUS 3.4 mg/dl (2.5-4.9); SODIUM 151 mmol/L (135-144)
[2017-10-21] MEDS: DEXTROSE 5% 1,000 ML IV (13:40)
[2017-10-21] MEDS: POTASSIUM CHLORIDE 100 ML IVPB ×4 (15:19→22:50)
[2017-10-21 15:38] LABS: HEMATOCRIT 26.3 % (42.0-52.0); HEMOGLOBIN 8.7 g/dl (14.0-18.0)
[2017-10-21] MEDS: SOD CHLORIDE 0.9% 250 ML IV* (16:54)
[2017-10-21] MEDS: EPOETIN 10000 UNITS/ML VIAL (ONCOLOGY) SC (18:39)
[2017-10-21 19:18] LABS: HEMATOCRIT 24.7 % (42.0-52.0); HEMOGLOBIN 8.1 g/dl (14.0-18.0)
[2017-10-21] MEDS: COLLAGENASE 5 GM (UD JAR) TOP (21:33)
[2017-10-21] MEDS: TRANEXAMIC ACID 1,000 MG in DEXTROSE 5% 100 ML IV (23:46)
[2017-10-22] MEDS: SOD CHLORIDE 0.9% IV (00:55)
[2017-10-22] MEDS: TRANEXAMIC ACID IV (00:55)
[2017-10-22 01:03] LABS: HEMATOCRIT 23.4 % (42.0-52.0); HEMOGLOBIN 7.6 g/dl (14.0-18.0)
[2017-10-22 02:14] LABS: TYPE AND SCREEN 1
[2017-10-22] MEDS: PANTOPRAZOLE (EC) 40 MG TAB PO ×2 (06:04→17:17)
[2017-10-22] MEDS: DEXTROSE 5% 1,000 ML IV (08:00)
[2017-10-22] MEDS: MESALAMINE (EC) 400 MG CAP PO ×3 (08:34→20:55)
[2017-10-22] MEDS: FOLIC ACID 1 MG TAB PO (08:35)
[2017-10-22] MEDS: PROPRANOLOL 10 MG TAB PO ×2 (08:36→20:56)
[2017-10-22 08:42] LABS: ADD MAN DIFF? NO
[2017-10-22 08:44] LABS: ABNORMAL IP MESSAGE 1; HEMATOCRIT 21.6 % (42.0-52.0); HEMOGLOBIN 7.1 g/dl (14.0-18.0); LYMPHOCYTES # 0.3 10^3/ul (0.8-2.9); LYMPHOCYTES % 12.6 % (15.0-51.0); MEAN CORPUSCULAR HEMOGLOBIN 29.3 pg (29.0-33.0); MEAN CORPUSCULAR HGB CONC 32.9 g/dl (32.0-37.0); MEAN CORPUSCULAR VOLUME 89.3 fl (82.0-101.0); MEAN PLATELET VOLUME 12.5 fl (7.4-10.4); MONOCYTE # 0.4 10^3/ul (0.3-0.9); MONOCYTES % 17.6 % (0.0-11.0); NEUTROPHIL # 1.6 10^3/ul (1.6-7.5); NEUTROPHILS % 68.1 % (39.0-77.0); PLATELET COUNT 66 10^3/UL (140-415); POSITIVE DIFF @See below; RED BLOOD COUNT 2.42 10^6/ul (4.70-6.10); RED CELL DISTRIBUTION WIDTH 15.7 % (11.5-14.5)
[2017-10-22 08:44] LABS: WHITE BLOOD COUNT 2.4 10^3/ul (4.8-10.8)
[2017-10-22 09:04] LABS: AMMONIA 11 umol/l (9-30)
[2017-10-22 09:05] LABS: INR 1.55; PROTIME 18.9 Sec (11.9-14.9); PT RATIO 1.5
[2017-10-22 09:06] LABS: PARTIAL THROMBOPLASTIN TIME 43.5 Sec (25.0-35.0)
[2017-10-22 09:13] LABS: ALBUMIN/GLOBULIN RATIO 0.56; ANION GAP 9 (8-16)
[2017-10-22 09:19] LABS: ALANINE AMINOTRANSFERASE 118 IU/L (13-69); ALBUMIN 2.2 g/dl (3.3-4.9); ALKALINE PHOSPHATASE 385 IU/L (42-121); ASPARTATE AMINO TRANSFERASE 43 IU/L (15-46); BILIRUBIN,INDIRECT 0.7 mg/dl (0-1.1); BILIRUBIN,TOTAL 0.7 mg/dl (0.2-1.3); BLOOD UREA NITROGEN 25 mg/dl (7-20); CALCIUM 8.5 mg/dl (8.4-10.2); CARBON DIOXIDE 24 mmol/L (21-31); CHLORIDE 118 mmol/L (97-110); CREATININE 1.02 mg/dl (0.61-1.24); GLUCOSE 173 mg/dl (70-220); MAGNESIUM 1.9 mg/dl (1.7-2.5); POTASSIUM 3.6 mmol/L (3.5-5.1); SODIUM 147 mmol/L (135-144); TOTAL PROTEIN 6.1 g/dl (6.1-8.1)
[2017-10-22 09:35] LABS: FIBRIN SPLIT PRODUCT <10 ug/ml (<10)
[2017-10-22] MEDS: SOD CHLORIDE 0.9% 250 ML IV (12:14)
[2017-10-22 14:56] LABS: IMMEDIATE SPIN CROSSMATCH 1 4
[2017-10-22] MEDS: ALBUTEROL/IPRATROPIUM (NEB) 3 ML AMP HHN (15:52)
[2017-10-22 16:27] LABS: HAPTOGLOBIN 93 mg/dL (43-212)
[2017-10-22 20:08] LABS: ERYTHROPOIETIN 343.4 mIU/mL (2.6-18.5)
[2017-10-22] MEDS: traZODone 50 MG TAB PO (20:56)
[2017-10-22] MEDS: COLLAGENASE 5 GM (UD JAR) TOP (20:56)
[2017-10-23 01:04] LABS: HEMATOCRIT 27.9 % (42.0-52.0); HEMOGLOBIN 9.4 g/dl (14.0-18.0)
[2017-10-23] MEDS: DEXTROSE 5% 1,000 ML IV (04:00)
[2017-10-23] MEDS: PANTOPRAZOLE (EC) 40 MG TAB PO ×2 (06:12→17:35)
[2017-10-23 07:34] LABS: ADD MAN DIFF? NO
[2017-10-23 07:38] LABS: HEMATOCRIT 28.5 % (42.0-52.0); HEMOGLOBIN 9.3 g/dl (14.0-18.0); MEAN CORPUSCULAR VOLUME 91.1 fl (82.0-101.0); RED BLOOD COUNT 3.13 10^6/ul (4.70-6.10)
[2017-10-23 07:39] LABS: ABNORMAL IP MESSAGE 1; BASOPHILS % 0.3 % (0.0-2.0); HEMATOCRIT 28.1 % (42.0-52.0); HEMOGLOBIN 9.2 g/dl (14.0-18.0); LYMPHOCYTES # 0.3 10^3/ul (0.8-2.9); LYMPHOCYTES % 8.4 % (15.0-51.0); MEAN CORPUSCULAR HEMOGLOBIN 29.7 pg (29.0-33.0); MEAN CORPUSCULAR HGB CONC 32.6 g/dl (32.0-37.0); MEAN PLATELET VOLUME 13.4 fl (7.4-10.4); MONOCYTE # 0.5 10^3/ul (0.3-0.9); MONOCYTES % 17.2 % (0.0-11.0); NEUTROPHIL # 2.1 10^3/ul (1.6-7.5); NEUTROPHILS % 72.1 % (39.0-77.0); PLATELET COUNT 60 10^3/UL (140-415); POSITIVE DIFF @See below; RED CELL DISTRIBUTION WIDTH 15.4 % (11.5-14.5)
[2017-10-23 08:02] LABS: ANION GAP 11 (8-16); BLOOD UREA NITROGEN 27 mg/dl (7-20); CALCIUM 8.7 mg/dl (8.4-10.2); CARBON DIOXIDE 23 mmol/L (21-31); CHLORIDE 116 mmol/L (97-110); CREATININE 1.07 mg/dl (0.61-1.24); GLUCOSE 175 mg/dl (70-220); PHOSPHORUS 3.1 mg/dl (2.5-4.9); POTASSIUM 3.6 mmol/L (3.5-5.1); SODIUM 146 mmol/L (135-144)
[2017-10-23] MEDS: FOLIC ACID 1 MG TAB PO (09:05)
[2017-10-23] MEDS: MESALAMINE (EC) 400 MG CAP PO ×3 (09:05→22:00)
[2017-10-23] MEDS: PROPRANOLOL 10 MG TAB PO ×2 (09:06→22:38)
[2017-10-23 12:43] LABS: HEMATOCRIT 26.1 % (42.0-52.0); HEMOGLOBIN 8.7 g/dl (14.0-18.0)
[2017-10-23] MEDS: MEGESTROL 40 MG TAB PO ×2 (15:01→22:01)
[2017-10-23 15:12] LABS: MYELOPEROXIDASE ANTIBODY <1.0 AI; PROTEINASE-3 ANTIBODY <1.0 AI
[2017-10-23 17:26] LABS: MITOCHONDRIAL TB NEGATIVE (NEGATIVE); SMOOTH MUSCLE AB SCREEN POSITIVE (NEGATIVE)
[2017-10-23] MEDS: EPOETIN 10000 UNITS/ML VIAL (ONCOLOGY) SC (17:38)
[2017-10-23 18:04] LABS: HEMATOCRIT 29.7 % (42.0-52.0); HEMOGLOBIN 9.8 g/dl (14.0-18.0)
[2017-10-23] MEDS: COLLAGENASE 5 GM (UD JAR) TOP (22:00)
[2017-10-23] MEDS: traZODone 50 MG TAB PO (22:38)
[2017-10-24 01:06] LABS: HEMATOCRIT 25.1 % (42.0-52.0); HEMOGLOBIN 8.3 g/dl (14.0-18.0)
[2017-10-24] MEDS: PANTOPRAZOLE (EC) 40 MG TAB PO ×2 (06:18→21:23)
[2017-10-24 08:52] LABS: HEMATOCRIT 27.7 % (42.0-52.0)
[2017-10-24] MEDS: PROPRANOLOL 10 MG TAB PO (09:00)
[2017-10-24] MEDS: MESALAMINE (EC) 400 MG CAP PO ×3 (10:42→21:23)
[2017-10-24] MEDS: FOLIC ACID 1 MG TAB PO (10:45)
[2017-10-24] MEDS: MEGESTROL 40 MG TAB PO (10:53)
[2017-10-24 11:14] LABS: CMV DNA QL SOURCE WHOLE BLOOD
[2017-10-24 12:32] LABS: ANA SCREEN POSITIVE (NEGATIVE)
[2017-10-24 13:16] LABS: ANA PATTERN DUAL; ANCA SCREEN NEGATIVE (NEGATIVE)
[2017-10-24] MEDS: SOD CHLORIDE 0.45% 1,000 ML IV (13:30)
[2017-10-24] MEDS: COLLAGENASE 5 GM (UD JAR) TOP (21:23)
[2017-10-25] MEDS: MEGESTROL 40 MG TAB PO ×3 (01:05→20:55)
[2017-10-25 06:14] LABS: ADD MAN DIFF? NO
[2017-10-25 06:18] LABS: WHITE BLOOD COUNT 2.3 10^3/ul (4.8-10.8)
[2017-10-25 06:18] LABS: ABNORMAL IP MESSAGE 1; HEMATOCRIT 25.4 % (42.0-52.0); HEMOGLOBIN 8.3 g/dl (14.0-18.0); LYMPHOCYTES # 0.3 10^3/ul (0.8-2.9); LYMPHOCYTES % 11.9 % (15.0-51.0); MEAN CORPUSCULAR HEMOGLOBIN 29.4 pg (29.0-33.0); MEAN CORPUSCULAR HGB CONC 32.7 g/dl (32.0-37.0); MEAN CORPUSCULAR VOLUME 90.1 fl (82.0-101.0); MEAN PLATELET VOLUME 13.6 fl (7.4-10.4); MONOCYTE # 0.5 10^3/ul (0.3-0.9); NEUTROPHIL # 1.5 10^3/ul (1.6-7.5); NEUTROPHILS % 63.9 % (39.0-77.0); PLATELET COUNT 40 10^3/UL (140-415); POSITIVE DIFF @See below; RED BLOOD COUNT 2.82 10^6/ul (4.70-6.10); RED CELL DISTRIBUTION WIDTH 15.2 % (11.5-14.5)
[2017-10-25] MEDS: PANTOPRAZOLE (EC) 40 MG TAB PO ×2 (06:39→17:35)
[2017-10-25 06:59] LABS: ALANINE AMINOTRANSFERASE 155 IU/L (13-69); ALBUMIN 2.5 g/dl (3.3-4.9); ALBUMIN/GLOBULIN RATIO 0.56; ALKALINE PHOSPHATASE 591 IU/L (42-121); ANION GAP 8 (8-16); ASPARTATE AMINO TRANSFERASE 60 IU/L (15-46); BILIRUBIN,INDIRECT 0.7 mg/dl (0-1.1); BILIRUBIN,TOTAL 0.7 mg/dl (0.2-1.3); BLOOD UREA NITROGEN 26 mg/dl (7-20); CALCIUM 8.8 mg/dl (8.4-10.2); CARBON DIOXIDE 22 mmol/L (21-31); CHLORIDE 116 mmol/L (97-110); CREATININE 1.06 mg/dl (0.61-1.24); GLUCOSE 134 mg/dl (70-220); POTASSIUM 3.2 mmol/L (3.5-5.1); SODIUM 143 mmol/L (135-144); TOTAL PROTEIN 6.9 g/dl (6.1-8.1)
[2017-10-25] MEDS: FOLIC ACID 1 MG TAB PO (09:02)
[2017-10-25] MEDS: MESALAMINE (EC) 400 MG CAP PO ×3 (09:02→20:55)
[2017-10-25] MEDS: SOD CHLORIDE 0.45% 1,000 ML IV (09:03)
[2017-10-25] MEDS: POTASSIUM CHLORIDE 20 MEQ POWDER FOR ORAL SOLN PO (11:29)
[2017-10-25] MEDS: SPIRONOLACTONE 25 MG TAB PO (12:12)
[2017-10-25] MEDS: FUROSEMIDE 20 MG TAB PO (12:13)
[2017-10-25] MEDS: ALBUTEROL/IPRATROPIUM (NEB) 3 ML AMP HHN ×2 (13:37→21:13)
[2017-10-25] MEDS: EPOETIN 10000 UNITS/ML VIAL (ONCOLOGY) SC (17:30)
[2017-10-25] MEDS: COLLAGENASE 5 GM (UD JAR) TOP (20:56)
[2017-10-26] MEDS: SOD CHLORIDE 0.45% 1,000 ML IV (06:24)
[2017-10-26] MEDS: PANTOPRAZOLE (EC) 40 MG TAB PO ×2 (06:25→17:44)
[2017-10-26 06:51] LABS: ADD MAN DIFF? NO
[2017-10-26 07:07] LABS: WHITE BLOOD COUNT 1.8 10^3/ul (4.8-10.8)
[2017-10-26 07:07] LABS: ABNORMAL IP MESSAGE 1; HEMATOCRIT 23.4 % (42.0-52.0); HEMOGLOBIN 7.6 g/dl (14.0-18.0); LYMPHOCYTES # 0.2 10^3/ul (0.8-2.9); LYMPHOCYTES % 13.1 % (15.0-51.0); MEAN CORPUSCULAR HEMOGLOBIN 29.1 pg (29.0-33.0); MEAN CORPUSCULAR HGB CONC 32.5 g/dl (32.0-37.0); MEAN CORPUSCULAR VOLUME 89.7 fl (82.0-101.0); MEAN PLATELET VOLUME 13.9 fl (7.4-10.4); MONOCYTE # 0.4 10^3/ul (0.3-0.9); MONOCYTES % 21.7 % (0.0-11.0); NEUTROPHIL # 1.1 10^3/ul (1.6-7.5); NEUTROPHILS % 62.9 % (39.0-77.0); PLATELET COUNT 39 10^3/UL (140-415); POSITIVE DIFF @See below; RED BLOOD COUNT 2.61 10^6/ul (4.70-6.10); RED CELL DISTRIBUTION WIDTH 15.4 % (11.5-14.5)
[2017-10-26 07:26] LABS: ANION GAP 6 (8-16); BLOOD UREA NITROGEN 27 mg/dl (7-20); CALCIUM 8.8 mg/dl (8.4-10.2); CARBON DIOXIDE 23 mmol/L (21-31); CHLORIDE 117 mmol/L (97-110); CREATININE 1.12 mg/dl (0.61-1.24); GLUCOSE 128 mg/dl (70-220); PHOSPHORUS 3.9 mg/dl (2.5-4.9); POTASSIUM 3.6 mmol/L (3.5-5.1); SODIUM 142 mmol/L (135-144)
[2017-10-26] MEDS: SPIRONOLACTONE 25 MG TAB PO (08:43)
[2017-10-26] MEDS: FOLIC ACID 1 MG TAB PO (08:43)
[2017-10-26] MEDS: MEGESTROL 40 MG TAB PO ×2 (08:43→21:19)
[2017-10-26] MEDS: FUROSEMIDE 20 MG TAB PO ×2 (08:43→10:46)
[2017-10-26] MEDS: MESALAMINE (EC) 400 MG CAP PO ×3 (08:43→21:19)
[2017-10-26] MEDS: ALBUTEROL/IPRATROPIUM (NEB) 3 ML AMP HHN (09:22)
[2017-10-26 09:28] LABS: BAND NEUTROPHILS #M 0.3 10^3/ul (0.0-0.6); BAND NEUTROPHILS % (M) 18 % (0-4); GIANT THROMBO% (M) 1 % (0-0); LYMPHOCYTES #M 0.3 10^3/ul (0.8-2.9); LYMPHOCYTES % (M) 17 % (15-51); MONOCYTE #M 0.2 10^3/ul (0.3-0.9); MONOCYTES % (M) 15 % (0-11); MYELOCYTES % (M) 1 % (0-0); PLATELET ESTIMATE SIG DECREASED; POLYCHROMASIA 1+ (0-0); REACTIVE LYMPHOCYTES% (M) 2 % (0-0); SEG NEUT #M 0.9 10^3/ul (1.6-7.5); SEGMENTED NEUTROPHILS (M) % 47 % (39-77); SMUDGE%M 13 % (0-0)
[2017-10-26] MEDS: RIFAXIMIN 550 MG TAB PO (17:44)
[2017-10-26] MEDS: COLLAGENASE 5 GM (UD JAR) TOP (21:19)
[2017-10-27] MEDS: PANTOPRAZOLE (EC) 40 MG TAB PO ×2 (05:39→18:02)
[2017-10-27] MEDS: FOLIC ACID 1 MG TAB PO (08:53)
[2017-10-27] MEDS: MEGESTROL 40 MG TAB PO ×2 (08:53→21:07)
[2017-10-27] MEDS: MESALAMINE (EC) 400 MG CAP PO ×3 (08:53→22:37)
[2017-10-27] MEDS: SPIRONOLACTONE 50 MG TAB PO (08:53)
[2017-10-27] MEDS: FUROSEMIDE 40 MG TAB PO (08:53)
[2017-10-27] MEDS: RIFAXIMIN 550 MG TAB PO ×2 (08:53→21:07)
[2017-10-27 08:59] LABS: ABNORMAL IP MESSAGE 1; HEMATOCRIT 25.7 % (42.0-52.0); HEMOGLOBIN 8.4 g/dl (14.0-18.0); MEAN CORPUSCULAR HEMOGLOBIN 29.6 pg (29.0-33.0); MEAN CORPUSCULAR HGB CONC 32.7 g/dl (32.0-37.0); MEAN CORPUSCULAR VOLUME 90.5 fl (82.0-101.0); MEAN PLATELET VOLUME 13.5 fl (7.4-10.4); PLATELET COUNT 35 10^3/UL (140-415); POSITIVE DIFF @See below; RED BLOOD COUNT 2.84 10^6/ul (4.70-6.10); RED CELL DISTRIBUTION WIDTH 15.3 % (11.5-14.5)
[2017-10-27 09:10] LABS: ADD MAN DIFF? YES
[2017-10-27 09:17] LABS: INR 1.44; PROTIME 17.8 Sec (11.9-14.9); PT RATIO 1.4
[2017-10-27 09:18] LABS: PARTIAL THROMBOPLASTIN TIME 43.2 Sec (25.0-35.0)
[2017-10-27 09:19] LABS: ALANINE AMINOTRANSFERASE 134 IU/L (13-69); ALBUMIN 2.6 g/dl (3.3-4.9); ALBUMIN/GLOBULIN RATIO 0.56; ALKALINE PHOSPHATASE 675 IU/L (42-121); ANION GAP 6 (8-16); ASPARTATE AMINO TRANSFERASE 48 IU/L (15-46); BILIRUBIN,INDIRECT 0.7 mg/dl (0-1.1); BILIRUBIN,TOTAL 0.7 mg/dl (0.2-1.3); BLOOD UREA NITROGEN 30 mg/dl (7-20); CARBON DIOXIDE 23 mmol/L (21-31); CHLORIDE 116 mmol/L (97-110); CREATININE 1.22 mg/dl (0.61-1.24); GLUCOSE 185 mg/dl (70-220); POTASSIUM 3.2 mmol/L (3.5-5.1); SODIUM 142 mmol/L (135-144); TOTAL PROTEIN 7.2 g/dl (6.1-8.1)
[2017-10-27 10:28] LABS: BAND NEUTROPHILS #M 0.5 10^3/ul (0.0-0.6); BAND NEUTROPHILS % (M) 26 % (0-4); LYMPHOCYTES #M 0.2 10^3/ul (0.8-2.9); LYMPHOCYTES % (M) 14 % (15-51); MONOCYTE #M 0.2 10^3/ul (0.3-0.9); MONOCYTES % (M) 13 % (0-11); PLATELET ESTIMATE DECREASED; REACTIVE LYMPHOCYTES% (M) 3 % (0-0); SEG NEUT #M 0.9 10^3/ul (1.6-7.5); SEGMENTED NEUTROPHILS (M) % 44 % (39-77); SMUDGE%M 7 % (0-0)
[2017-10-27] MEDS: POTASSIUM CHLORIDE 20 MEQ POWDER FOR ORAL SOLN PO (12:24)
[2017-10-27] MEDS: PHYTONADIONE 10 MG in DEXTROSE 5% 50 ML IVPB (14:34)
[2017-10-27] MEDS: COLLAGENASE 5 GM (UD JAR) TOP (21:07)
[2017-10-28] MEDS: PANTOPRAZOLE (EC) 40 MG TAB PO ×2 (05:56→17:43)
[2017-10-28 07:23] LABS: ADD MAN DIFF? NO
[2017-10-28 07:24] LABS: WHITE BLOOD COUNT 2.2 10^3/ul (4.8-10.8)
[2017-10-28 07:24] LABS: ABNORMAL IP MESSAGE 1; HEMATOCRIT 24.1 % (42.0-52.0); HEMOGLOBIN 7.8 g/dl (14.0-18.0); LYMPHOCYTES # 0.3 10^3/ul (0.8-2.9); LYMPHOCYTES % 12.9 % (15.0-51.0); MEAN CORPUSCULAR HEMOGLOBIN 29.3 pg (29.0-33.0); MEAN CORPUSCULAR HGB CONC 32.4 g/dl (32.0-37.0); MEAN CORPUSCULAR VOLUME 90.6 fl (82.0-101.0); MEAN PLATELET VOLUME 14.5 fl (7.4-10.4); MONOCYTE # 0.4 10^3/ul (0.3-0.9); MONOCYTES % 19.4 % (0.0-11.0); NEUTROPHIL # 1.4 10^3/ul (1.6-7.5); PLATELET COUNT 39 10^3/UL (140-415); POSITIVE DIFF @See below; RED BLOOD COUNT 2.66 10^6/ul (4.70-6.10); RED CELL DISTRIBUTION WIDTH 15.4 % (11.5-14.5)
[2017-10-28 07:41] LABS: INR 1.45; PROTIME 17.9 Sec (11.9-14.9); PT RATIO 1.4
[2017-10-28 07:44] LABS: ALBUMIN 2.8 g/dl (3.3-4.9); ANION GAP 14 (8-16); BLOOD UREA NITROGEN 31 mg/dl (7-20); CARBON DIOXIDE 24 mmol/L (21-31); CHLORIDE 113 mmol/L (97-110); CREATININE 1.31 mg/dl (0.61-1.24); GLUCOSE 115 mg/dl (70-220); MAGNESIUM 2.1 mg/dl (1.7-2.5); PHOSPHORUS 4.3 mg/dl (2.5-4.9); POTASSIUM 3.5 mmol/L (3.5-5.1); SODIUM 147 mmol/L (135-144)
[2017-10-28] MEDS: FOLIC ACID 1 MG TAB PO (08:37)
[2017-10-28] MEDS: MEGESTROL 40 MG TAB PO ×2 (08:37→20:40)
[2017-10-28] MEDS: RIFAXIMIN 550 MG TAB PO ×2 (08:37→20:40)
[2017-10-28] MEDS: MESALAMINE (EC) 400 MG CAP PO ×3 (08:37→20:41)
[2017-10-28] MEDS: SPIRONOLACTONE 50 MG TAB PO (08:37)
[2017-10-28] MEDS: FUROSEMIDE 40 MG TAB PO (08:37)
[2017-10-28] MEDS: SOD CHLORIDE 0.9% 500 ML IV (10:47)
[2017-10-28] MEDS: EPOETIN 10000 UNITS/ML VIAL (ONCOLOGY) SC (17:44)
[2017-10-28] MEDS: COLLAGENASE 5 GM (UD JAR) TOP (20:41)
[2017-10-28 23:48] LABS: ADD MAN DIFF? NO
[2017-10-29 00:07] LABS: INR 1.35; PARTIAL THROMBOPLASTIN TIME 20.7 Sec (25.0-35.0); PROTIME 16.9 Sec (11.9-14.9); PT RATIO 1.3
[2017-10-29 00:09] LABS: ABNORMAL IP MESSAGE 1; LYMPHOCYTES # 0.3 10^3/ul (0.8-2.9); LYMPHOCYTES % 16.7 % (15.0-51.0); MEAN CORPUSCULAR HEMOGLOBIN 29.3 pg (29.0-33.0); MEAN CORPUSCULAR VOLUME 91.6 fl (82.0-101.0); MEAN PLATELET VOLUME 14.3 fl (7.4-10.4); MONOCYTE # 0.4 10^3/ul (0.3-0.9); MONOCYTES % 19.6 % (0.0-11.0); NEUTROPHIL # 1.2 10^3/ul (1.6-7.5); NEUTROPHILS % 60.8 % (39.0-77.0); PLATELET COUNT 51 10^3/UL (140-415); POSITIVE DIFF @See below; RED BLOOD COUNT 2.73 10^6/ul (4.70-6.10); RED CELL DISTRIBUTION WIDTH 15.3 % (11.5-14.5)
[2017-10-29] MEDS: PANTOPRAZOLE (EC) 40 MG TAB PO ×2 (05:55→17:25)
[2017-10-29] MEDS: MESALAMINE (EC) 400 MG CAP PO ×3 (08:56→21:19)
[2017-10-29] MEDS: MEGESTROL 40 MG TAB PO ×2 (08:57→21:19)
[2017-10-29] MEDS: FOLIC ACID 1 MG TAB PO (08:57)
[2017-10-29] MEDS: SPIRONOLACTONE 50 MG TAB PO (08:57)
[2017-10-29] MEDS: FUROSEMIDE 40 MG TAB PO (08:57)
[2017-10-29] MEDS: RIFAXIMIN 550 MG TAB PO ×2 (08:57→21:20)
[2017-10-29 09:01] LABS: WHITE BLOOD COUNT 1.7 10^3/ul (4.8-10.8)
[2017-10-29 09:01] LABS: ABNORMAL IP MESSAGE 1; HEMATOCRIT 20.7 % (42.0-52.0); MEAN CORPUSCULAR HGB CONC 33.3 g/dl (32.0-37.0); MEAN PLATELET VOLUME 13.8 fl (7.4-10.4); PLATELET COUNT 43 10^3/UL (140-415); POSITIVE DIFF @See below; RED CELL DISTRIBUTION WIDTH 15.2 % (11.5-14.5)
[2017-10-29 09:09] LABS: HEMOGLOBIN 6.9 g/dl (14.0-18.0)
[2017-10-29 09:10] LABS: ADD MAN DIFF? YES
[2017-10-29 09:27] LABS: ALBUMIN 2.4 g/dl (3.3-4.9); ANION GAP 11 (8-16); BLOOD UREA NITROGEN 32 mg/dl (7-20); CALCIUM 8.5 mg/dl (8.4-10.2); CARBON DIOXIDE 24 mmol/L (21-31); CHLORIDE 111 mmol/L (97-110); CREATININE 1.24 mg/dl (0.61-1.24); GLUCOSE 124 mg/dl (70-220); PHOSPHORUS 4.6 mg/dl (2.5-4.9); POTASSIUM 3.2 mmol/L (3.5-5.1); SODIUM 143 mmol/L (135-144)
[2017-10-29 09:37] LABS: INR 1.47; PROTIME 18.1 Sec (11.9-14.9); PT RATIO 1.4
[2017-10-29 09:38] LABS: PARTIAL THROMBOPLASTIN TIME 45.7 Sec (25.0-35.0)
[2017-10-29 10:38] LABS: IMMEDIATE SPIN CROSSMATCH 1 2
[2017-10-29 10:56] LABS: ANISOCYTOSIS 1+ (0-0); BAND NEUTROPHILS #M 0.1 10^3/ul (0.0-0.6); BAND NEUTROPHILS % (M) 9 % (0-4); BASOPHIL #M 0.1 10^3/ul (0.0-0.0); BASOPHILS % (M) 7 % (0-2); HYPOCHROMASIA 1+ (0-0); LYMPHOCYTES #M 0.3 10^3/ul (0.8-2.9); LYMPHOCYTES % (M) 23 % (15-51); MONOCYTE #M 0.1 10^3/ul (0.3-0.9); MONOCYTES % (M) 9 % (0-11); MYELOCYTES % (M) 1 % (0-0); PLATELET ESTIMATE SIG DECREASED; POIKILOCYTOSIS 1+ (0-0); PROMYELOCYTES % (M) 1 % (0-0); SEG NEUT #M 0.9 10^3/ul (1.6-7.5); SEGMENTED NEUTROPHILS (M) % 51 % (39-77); SMUDGE%M 6 % (0-0)
[2017-10-29] MEDS: POTASSIUM CHLORIDE 100 ML IVPB ×2 (21:19→23:35)
[2017-10-29] MEDS: COLLAGENASE 5 GM (UD JAR) TOP (21:40)
[2017-10-30] MEDS: GUAIFENESIN/DM 5ML CUP PO ×2 (01:43→21:07)
[2017-10-30] MEDS: PANTOPRAZOLE (EC) 40 MG TAB PO ×2 (05:18→17:16)
[2017-10-30] MEDS: FOLIC ACID 1 MG TAB PO (08:49)
[2017-10-30] MEDS: MEGESTROL 40 MG TAB PO ×2 (08:49→21:07)
[2017-10-30] MEDS: FUROSEMIDE 40 MG TAB PO (08:50)
[2017-10-30] MEDS: MESALAMINE (EC) 400 MG CAP PO ×3 (08:50→21:00)
[2017-10-30] MEDS: RIFAXIMIN 550 MG TAB PO ×2 (08:50→21:12)
[2017-10-30] MEDS: SPIRONOLACTONE 50 MG TAB PO (08:50)
[2017-10-30 09:54] LABS: WHITE BLOOD COUNT 2.3 10^3/ul (4.8-10.8)
[2017-10-30 09:54] LABS: ABNORMAL IP MESSAGE 1; HEMATOCRIT 28.7 % (42.0-52.0); HEMOGLOBIN 9.6 g/dl (14.0-18.0); MEAN CORPUSCULAR HEMOGLOBIN 29.7 pg (29.0-33.0); MEAN CORPUSCULAR HGB CONC 33.4 g/dl (32.0-37.0); MEAN CORPUSCULAR VOLUME 88.9 fl (82.0-101.0); MEAN PLATELET VOLUME 13.4 fl (7.4-10.4); PLATELET COUNT 42 10^3/UL (140-415); POSITIVE DIFF @See below; RED BLOOD COUNT 3.23 10^6/ul (4.70-6.10)
[2017-10-30 10:08] LABS: ADD MAN DIFF? YES
[2017-10-30 10:20] LABS: ALBUMIN 2.7 g/dl (3.3-4.9); ANION GAP 9 (8-16); BLOOD UREA NITROGEN 35 mg/dl (7-20); CALCIUM 8.5 mg/dl (8.4-10.2); CARBON DIOXIDE 26 mmol/L (21-31); CHLORIDE 112 mmol/L (97-110); CREATININE 1.32 mg/dl (0.61-1.24); GLUCOSE 124 mg/dl (70-220); PHOSPHORUS 4.4 mg/dl (2.5-4.9); POTASSIUM 3.5 mmol/L (3.5-5.1); SODIUM 143 mmol/L (135-144)
[2017-10-30 10:48] LABS: BAND NEUTROPHILS #M 0.3 10^3/ul (0.0-0.6); BAND NEUTROPHILS % (M) 15 % (0-4); LYMPHOCYTES #M 0.3 10^3/ul (0.8-2.9); LYMPHOCYTES % (M) 14 % (15-51); MONOCYTE #M 0.5 10^3/ul (0.3-0.9); MONOCYTES % (M) 22 % (0-11); MYELOCYTES % (M) 1 % (0-0); PLATELET ESTIMATE DECREASED; POLYCHROMASIA 3+ (0-0); REACTIVE LYMPHOCYTES% (M) 1 % (0-0); SEG NEUT #M 1.1 10^3/ul (1.6-7.5); SEGMENTED NEUTROPHILS (M) % 47 % (39-77); SMUDGE%M 11 % (0-0)
[2017-10-30] MEDS: EPOETIN 10000 UNITS/ML VIAL (ONCOLOGY) SC (17:17)
[2017-10-30] MEDS: COLLAGENASE 5 GM (UD JAR) TOP (21:07)
[2017-10-30] MEDS: morphine LIQ (10 MG/5 ML) CUP PO (21:47)
[2017-10-30] MEDS: ACETAMINOPHEN 650MG/20.3ML CUP PO (21:47)
[2017-10-31] MEDS: PANTOPRAZOLE (EC) 40 MG TAB PO (05:50)
[2017-10-31] MEDS: SPIRONOLACTONE 50 MG TAB PO (09:01)
[2017-10-31] MEDS: MEGESTROL 40 MG TAB PO (09:01)
[2017-10-31] MEDS: MESALAMINE (EC) 400 MG CAP PO ×2 (09:01→12:09)
[2017-10-31] MEDS: FOLIC ACID 1 MG TAB PO (09:01)
[2017-10-31] MEDS: RIFAXIMIN 550 MG TAB PO (09:01)
[2017-10-31] MEDS: FUROSEMIDE 40 MG TAB PO (09:01)
[2017-10-31] MEDS: GUAIFENESIN/DM 5ML CUP PO (11:19)
[2017-10-31 12:19] LABS: WHITE BLOOD COUNT 1.8 10^3/ul (4.8-10.8)
[2017-10-31 12:19] LABS: ABNORMAL IP MESSAGE 1; HEMATOCRIT 28.8 % (42.0-52.0); HEMOGLOBIN 9.6 g/dl (14.0-18.0); MEAN CORPUSCULAR HGB CONC 33.3 g/dl (32.0-37.0); MEAN PLATELET VOLUME 13.2 fl (7.4-10.4); PLATELET COUNT 45 10^3/UL (140-415); POSITIVE DIFF @See below; RED CELL DISTRIBUTION WIDTH 15.1 % (11.5-14.5)
[2017-10-31 12:23] LABS: ADD MAN DIFF? YES
[2017-10-31 13:15] LABS: ANISOCYTOSIS 1+ (0-0); BAND NEUTROPHILS #M 0.3 10^3/ul (0.0-0.6); BAND NEUTROPHILS % (M) 22 % (0-4); GIANT THROMBO% (M) 1 % (0-0); LYMPHOCYTES % (M) 5 % (15-51); METAMYELOCYTES %M 1 % (0-0); MONOCYTE #M 0.4 10^3/ul (0.3-0.9); MONOCYTES % (M) 26 % (0-11); MYELOCYTES % (M) 5 % (0-0); PLATELET ESTIMATE SIG DECREASED; POLYCHROMASIA 3+ (0-0); PROMYELOCYTES #M 0.1 10^3/ul (0-0); PROMYELOCYTES % (M) 6 % (0-0); SEG NEUT #M 0.6 10^3/ul (1.6-7.5); SEGMENTED NEUTROPHILS (M) % 34 % (39-77); SMUDGE%M 4 % (0-0)
[2017-10-31] MEDS: morphine LIQ (10 MG/5 ML) CUP PO (14:43)
== END 2017-10-31 16:09 | disposition hospice, home (50) | DRG 808 ==
LOC: E/R 17:58 → MS4 10-16 18:22 → ICU 21:21
PROC: 0DJD8ZZ Inspection of Lower Intestinal Tract, Via Natural or Artificial Opening Endoscopic (ICD-10-PCS; principal; 2017-10-15 16:33)
PROC: 0DJ08ZZ Inspection of Upper Intestinal Tract, Via Natural or Artificial Opening Endoscopic (ICD-10-PCS; 2017-10-15 16:33)
PROC: 30233K1 Transfusion of Nonautologous Frozen Plasma into Peripheral Vein, Percutaneous Approach (ICD-10-PCS; 2017-10-15 16:33)
PROC: 30233N1 Transfusion of Nonautologous Red Blood Cells into Peripheral Vein, Percutaneous Approach (ICD-10-PCS; 2017-10-15 16:33)
PROC: 30233R1 Transfusion of Nonautologous Platelets into Peripheral Vein, Percutaneous Approach (ICD-10-PCS; 2017-10-15 16:33)
PROC: 0W9G3ZZ Drainage of Peritoneal Cavity, Percutaneous Approach (ICD-10-PCS; 2017-10-15 16:33)
DX: D61.818 Other pancytopenia (principal); J18.9 Pneumonia, unspecified organism; E43 Unspecified severe protein-calorie malnutrition; D68.4 Acquired coagulation factor deficiency; K62.5 Hemorrhage of anus and rectum; K63.3 Ulcer of intestine; N39.0 Urinary tract infection, site not specified; K76.6 Portal hypertension; M35.2 Behcet's disease; K56.7 Ileus, unspecified; I85.10 Secondary esophageal varices without bleeding; R64 Cachexia; D62 Acute posthemorrhagic anemia; Z85.038 Personal history of other malignant neoplasm of large intestine; D46.9 Myelodysplastic syndrome, unspecified; Z66 Do not resuscitate; I95.89 Other hypotension; K70.31 Alcoholic cirrhosis of liver with ascites; R16.1 Splenomegaly, not elsewhere classified; Z68.20 Body mass index [BMI] 20.0-20.9, adult; K31.89 Other diseases of stomach and duodenum; K52.9 Noninfective gastroenteritis and colitis, unspecified
CPT/HCPCS: 36415; 36430; 71045; 74178; 78278; 80048; 80053; 80069; 81001; 82140; 82607; 82668; 82728; 82746; 82787; 82962; 83010; 83540; 83605; 83615; 83690; 83735; 84100; 84484; 85014; 85018; 85025; 85045; 85362; 85384; 85610; 85651; 85730; 86021; 86038; 86140; 86255; 86644; 86704; 86709; 86803; 86850; 86900; 86901; 86920; 86945; 87040; 87070; 87081; 87086; 87102; 87116; 87340; 87496; 89051; 92526; 92610; 93005; 94640; 94664; 96365; 96366; 96375; 96376; 99291-25; J0885

== ENCOUNTER 2017-11-20 21:19 | Inpatient (IN) | payer MEDICARE, OTHER ==
[2017-11-20] MEDS: KETOROLAC 15 MG INJ IV (21:54)
[2017-11-20] MEDS: SODIUM CHLORIDE 0.9% 1L BAG IV* (21:56)
[2017-11-20 22:06] LABS: ABNORMAL IP MESSAGE 1; HEMATOCRIT 21.1 % (42.0-52.0); HEMOGLOBIN 7.2 g/dl (14.0-18.0); MEAN CORPUSCULAR HEMOGLOBIN 29.8 pg (29.0-33.0); MEAN CORPUSCULAR HGB CONC 34.1 g/dl (32.0-37.0); MEAN CORPUSCULAR VOLUME 87.2 fl (82.0-101.0); MEAN PLATELET VOLUME 12.8 fl (7.4-10.4); PLATELET COUNT 102 10^3/UL (140-415); POSITIVE DIFF @See below; RED BLOOD COUNT 2.42 10^6/ul (4.70-6.10); RED CELL DISTRIBUTION WIDTH 14.7 % (11.5-14.5)
[2017-11-20 22:06] LABS: WHITE BLOOD COUNT 39.2 10^3/ul (4.8-10.8)
[2017-11-20] MEDS: ACETAMINOPHEN 325 MG TAB PO (22:16)
[2017-11-20] MEDS: ACETAMINOPHEN 650 MG SUPP PR (22:24)
[2017-11-20] MEDS: LORAZEPAM 2 MG INJ IV (22:24)
[2017-11-20] MEDS: CEFEPIME 2GM/50 ML (PMX) 50 ML IVPB (22:25)
[2017-11-20 22:32] LABS: ADD MAN DIFF? YES
[2017-11-20 23:00] LABS: ALANINE AMINOTRANSFERASE 24 IU/L (13-69); ALBUMIN 2.6 g/dl (3.3-4.9); ALBUMIN/GLOBULIN RATIO 0.57; ALKALINE PHOSPHATASE 249 IU/L (42-121); ANION GAP 24 (8-16); ASPARTATE AMINO TRANSFERASE 50 IU/L (15-46); BILIRUBIN,INDIRECT 1.2 mg/dl (0-1.1); BILIRUBIN,TOTAL 1.2 mg/dl (0.2-1.3); BLOOD UREA NITROGEN 49 mg/dl (7-20); CALCIUM 7.9 mg/dl (8.4-10.2); CARBON DIOXIDE 19 mmol/L (21-31); CHLORIDE 88 mmol/L (97-110); GLUCOSE 68 mg/dl (70-220); POTASSIUM 4.9 mmol/L (3.5-5.1); SODIUM 126 mmol/L (135-144); TOTAL PROTEIN 7.1 g/dl (6.1-8.1)
[2017-11-20 23:08] LABS: INR 1.75; PROTIME 20.8 Sec (11.9-14.9); PT RATIO 1.6
[2017-11-20] MEDS: VANCOMYCIN 1 GM (PMX) 250 ML IVPB (23:08)
[2017-11-20 23:09] LABS: LACTIC ACID 9.3 mmol/L (0.5-2.0)
[2017-11-20 23:09] LABS: PARTIAL THROMBOPLASTIN TIME 44.5 Sec (25.0-35.0)
[2017-11-20 23:11] LABS: TROPONIN-I 0.064 ng/ml (0.000-0.120)
[2017-11-21 00:25] LABS: LACTIC ACID 4.4 mmol/L (0.5-2.0)
[2017-11-21 00:28] LABS: ANISOCYTOSIS 1+ (0-0); BAND NEUTROPHILS #M 12.9 10^3/ul (0.0-0.6); BAND NEUTROPHILS % (M) 33 % (0-4); BASOPHIL #M 0.3 10^3/ul (0.0-0.0); BASOPHILS % (M) 1 % (0-2); EOSINOPHILS % (M) 1 % (0-7); LYMPHOCYTES #M 1.1 10^3/ul (0.8-2.9); LYMPHOCYTES % (M) 3 % (15-51); MICROCYTOSIS 1+ (0-0); MONOCYTE #M 2.3 10^3/ul (0.3-0.9); MONOCYTES % (M) 6 % (0-11); MYELOCYTES #M 1.5 10^3/ul (0.0-0.0); MYELOCYTES % (M) 4 % (0-0); PLASMA CELLS #M 0.3 10^3/ul (0.0-0.0); PLASMAC%(M) 1 % (0); PLATELET ESTIMATE DECREASED; POLYCHROMASIA 1+ (0-0); PROMYELOCYTES #M 0.7 10^3/ul (0-0); PROMYELOCYTES % (M) 2 % (0-0); REACTIVE LYMPHOCYTES #M 1.9 10^3/ul (0.0-0.0); REACTIVE LYMPHOCYTES% (M) 5 % (0-0); SEG NEUT #M 21.9 10^3/ul (1.6-7.5); SEGMENTED NEUTROPHILS (M) % 43 % (39-77); SMUDGE%M 1 % (0-0)
[2017-11-21] MEDS ORDERED: ONDANSETRON 4 MG INJ IV (00:30)
[2017-11-21] MEDS ORDERED: ACETAMINOPHEN 325 MG TAB PO (00:30)
[2017-11-21] MEDS ORDERED: DEXTROSE 50% 50 ML SYRINGE (01:51)
[2017-11-21] MEDS ORDERED: morphine 2 MG INJ IV (02:30)
[2017-11-21 03:13] LABS: LACTIC ACID 2.6 mmol/L (0.5-2.0)
[2017-11-21] MEDS: CEFEPIME 1GM/50 ML (PMX) 50 ML IVPB ×2 (08:59→20:47)
[2017-11-22] MEDS: CEFEPIME 1GM/50 ML (PMX) 50 ML IVPB (08:35)
[2017-11-22] MEDS: LORAZEPAM 2 MG INJ IV (12:24)
== END 2017-11-22 16:08 | disposition expired | DRG 871 ==
LOC: MS4 11-21 01:58 → E/R 21:19 → MS4 11-21 00:02
PROVIDERS: Internal Medicine
DX: A41.9 Sepsis, unspecified organism (principal); J18.9 Pneumonia, unspecified organism; R65.21 Severe sepsis with septic shock; J96.00 Acute respiratory failure, unspecified whether with hypoxia or hypercapnia; C18.9 Malignant neoplasm of colon, unspecified; D46.9 Myelodysplastic syndrome, unspecified; K72.10 Chronic hepatic failure without coma; Z66 Do not resuscitate; K70.30 Alcoholic cirrhosis of liver without ascites; Z87.891 Personal history of nicotine dependence
CPT/HCPCS: 36415; 71045; 80053; 82962; 83605; 84484; 85025; 85610; 85730; 87040; 93005; 96365; 96375; 99291-25